=== PATIENT | male | born 1975 | race Caucasian/White ===

== ENCOUNTER 2016-10-14 06:36 | Day surgery (SDC) | payer OTHER, BC ==
[2016-10-09 10:18] LABS: BASOPHILS 0.2 %; BASOPHILS ABSOLUTE 0.02 10/3/uL (0.0-0.16); EOSINOPHILS 1.7 %; EOSINOPHILS ABSOLUTE 0.15 10/3/uL (0.0-0.53); HEMATOCRIT 41.6 % (40.0-51.0); HEMOGLOBIN 14.1 g/dL (13.6-17.8); IMMATURE GRANULOCYTES 0.7 %; IMMATURE GRANULOCYTES ABSOLUTE 0.06 10/3/uL (0.0-0.11); LYMPHOCYTES 23.5 %; LYMPHOCYTES ABSOLUTE 2.09 10/3/uL (0.67-4.30); MANUAL DIFF NO %; MEAN CORPUS HGB CONC 33.9 g/dL (32.0-36.0); MEAN CORPUSCULAR HEMOGLOB 30.4 pg (26.0-34.0); MEAN CORPUSCULAR VOLUME 89.7 fL (80-100); MEAN PLATELET VOLUME 9.7 fL (9.2-13.0); MONOCYTES 7.8 %; MONOCYTES ABSOLUTE 0.69 10/3/uL (0.21-1.20); NEUTROPHILS 66.1 %; NEUTROPHILS ABSOLUTE 5.87 10/3/uL (2.02-8.40); PLATELET COUNT 331 10/3/uL (150-400); RBC DISTRIBUTION WIDTH 13.8 % (12.0-16.0); RED CELL COUNT 4.64 10/6/uL (4.7-6.1); WHITE BLOOD CELLS 8.9 10/3/uL (4.5-10.5)
[2016-10-09 10:41] LABS: A/G RATIO 1.2 (0.7-1.9); ALBUMIN 3.8 G/DL (3.5-5.0); ALKALINE PHOSPHATASE 101 U/L (45-117); BUN (BLOOD UREA NITROGEN) 14 MG/DL (6-23); CALCIUM, SERUM 8.6 MG/DL (8.5-10.4); CHLORIDE, SERUM 108 MMOL/L (96-112); CO2 (CARBON DIOXIDE) 29 MMOL/L (24-34); CREATININE 1.06 MG/DL (0.70-1.30); GFR AFRICAN AMERICAN 100 ML/MIN (>=60); GFR NON AFRICAN AMERICAN 86 ML/MIN (>=60); GLOBULIN 3.2 G/DL (2.5-4.1); GLUCOSE, SERUM 92 MG/DL (60-99); POTASSIUM, SERUM 4.6 MMOL/L (3.5-5.3); SGOT(AST) 24 U/L (5-40); SGPT(ALT) 50 U/L (5-65); SODIUM, SERUM 143 MMOL/L (135-148); TOTAL BILIRUBIN 0.3 MG/DL (0-1.2)
--- NOTE | ~2016-10-14 | OP ---
Record Of Operation [facility] [address] [place]. [address] NAME: KAYLA IBARRA : 73 STATUS : REG [facility] [place] PAT#: [id number] AGE: 41 ADM/REG DATE : 10/14/16 MR#: [id number] REPORT SERV DATE: 10/14/16 DICTATED BY: MISHA SYKES III DATE: 10/14/16 REPORT STATUS : Draft TRANSCRIBED BY: MODL DATE: 10/14/16 DATE OF PROCEDURE: 10/14/2016 PREOPERATIVE DIAGNOSIS: Symptomatic acalculous cholecystitis. POSTOPERATIVE DIAGNOSIS: Symptomatic acalculous cholecystitis. PROCEDURE: Laparoscopic cholecystectomy. SURGEON: Misha Sykes M.D. ANESTHESIA: General with intubation. COMPLICATIONS: None. ESTIMATED BLOOD LOSS: Less than 30 mL. SPECIMENS: Gallbladder. DRAINS: None. LAP AND SPONGE COUNT: Correct x3. BRIEF HISTORY: This patient presented with evidence for acalculous cholecystitis. It was felt that laparoscopic cholecystectomy, possible laparotomy was indicated. This procedure, the risks, benefits, and alternatives, including but not limited to the risk for bleeding, infection, enterotomy, injury to any abdominal structure, common bile duct injury, bile leak, retained common bile duct stone, possible need for laparotomy, postop diarrhea, and unforeseen complications including deep venous thrombosis, pulmonary embolus, myocardial infarction, stroke, pneumonia, and , were fully and completely explained to patient length prior to surgery. The fact that this was a major operation with risk for major morbidity and mortality, no guarantee for relief his symptoms were explained. The expected length of recovery with open laparoscopic procedures was explained. The patient had questions, which were answered. He fully understood the risks and agreed to surgery as planned. FINDINGS: The patient's gallbladder galloway were thickened, inflamed, and there were adhesions between the gallbladder and omentum consistent with cholecystitis. The liver and remainder upper abdomen and lower abdomen were otherwise unremarkable as far as we could determine through the laparoscope. PROCEDURE IN DETAIL: After being appropriately identified and after discussing the risks of surgery with the patient and his family in the preoperative area, the patient was taken to the operating room and placed in the supine position on the operating room table. General anesthesia was administered. He was intubated without difficulty. The abdomen was prepped and draped sterilely in the usual fashion. After an appropriate "time-out" per [facility] Record Of Operation [facility] [address] [place]. [address] NAME: KAYLA IBARRA : 73 STATUS : REG [facility] [place] PAT#: [id number] AGE: 41 ADM/REG DATE : 10/14/16 MR#: [id number] REPORT SERV DATE: 10/14/16 DICTATED BY: MISHA SYKES III DATE: 10/14/16 REPORT STATUS : Draft TRANSCRIBED BY: MODGisel DATE: 10/14/16 standards, a small transverse incision was made below the umbilicus. The skin and fascia on either side was elevated with towel clips. A Veress needle was placed through the incision into the peritoneal cavity. Correct position of the needle in the peritoneal cavity was confirmed by the hanging drop test. The abdominal cavity was then insufflated to about 13 mmHg with carbon dioxide. Correct position of air in the peritoneal cavity was confirmed by palpation. The Veress needle was removed and replaced with 10-mm trocar. The laparoscope was placed through this. The patient was placed in the reverse Trendelenburg position and to his left. A second 10-mm trocar was placed just below the xiphoid process, to the right of the falciform ligament, under direct vision with the laparoscope. Two 5-mm trocars were placed along the right subcostal margin, one in the midaxillary line, the other in the midclavicular line. These were also placed under direct vision with the laparoscope. The upper abdomen was inspected. The gallbladder appeared to be chronically diseased. The gallbladder glaloway were thickened and inflamed consistent chronic cholecystitis. The liver and remainder of the upper abdomen were otherwise unremarkable as far as we could determine through the laparoscope. The appropriate instruments were placed through the trocars. The gallbladder was grasped and the infundibulum of the gallbladder was retracted laterally and inferiorly so as to expose the triangle of Calot. Using careful sharp and blunt dissection, the cystic duct was carefully and meticulously defined proximally and distally. The cystic duct was fairly long. The junction of the cystic duct with the common bile duct was appreciated, but not skeletonized. The cystic artery was similarly defined proximally and distally. The fibrous and fatty tissue between these structures was divided so as to clearly identify the critical angle. Once these structures were clearly defined, the cystic duct was clipped using two clips on the common bile duct side and one on the gallbladder side, all placed as close to the gallbladder as possible, taking care not encroach upon or injure the common bile duct in any way. The cystic duct was then divided between these clips as close to the gallbladder as possible. We elected not to perform a cholangiogram because there was no preoperative or intraoperative evidence for biliary dilatation and because the patient's preoperative liver enzymes were normal and because his biliary anatomy was clearly defined. Again, the structure was not divided or clipped until the critical angle and triangle of Calot had been clearly identified. The cystic artery was then similarly clipped and divided as close to the gallbladder as possible. Using the spatula and the cautery, the gallbladder was carefully dissected from the liver bed. This went very well. Before the gallbladder was completely removed, the gallbladder bed and portal areas were irrigated numerous times with saline. The saline was aspirated dry. This process was repeated several times until hemostasis was meticulously and thoroughly assured in all areas. It was also assured that the clips in the portal areas were in good position and there was no extravasation of bile from any accessory bile duct. Once this was assured, the gallbladder was completely dissected away from the liver and placed in the Endopouch. The liver bed was elevated, irrigated, and inspected for meticulous and thorough hemostasis and for absence of any biliary extravasation and to be certain that the clips were in good position. Once this was assured, the gallbladder and Endopouch were brought out through the infraumbilical incision and placed in the laparoscope through the subxiphoid port. The fascia of the infraumbilical incision was closed with 0 Vicryl suture. The lateral two trocars were removed. These two lower trocar sites were inspected on the underside for hemostasis with the laparoscope. Once this was assured, the subxiphoid trocar was removed under direct vision with the laparoscope to assure hemostasis in this incision. The air was removed from the peritoneal cavity through this incision. The skin incisions were inspected Record Of Operation [facility] [id number] [facility] [place]. [address] NAME: KAYLA IBARRA : 73 STATUS : REG [facility] [place] PAT#: [id number] AGE: 41 ADM/REG DATE : 10/14/16 MR#: [id number] REPORT SERV DATE: 10/14/16 DICTATED BY: MISHA SYKES III DATE: 10/14/16 REPORT STATUS : Draft TRANSCRIBED BY: STANISLAV DATE: 10/14/16 for hemostasis, they were closed with running subcuticular 4-0 Monocryl stitches. They were injected with one-half percent Marcaine. Dressings were applied. Anesthesia was reversed and the patient was taken to the recovery room in stable condition. The patient tolerated the procedure well. His family was informed of the results of surgery. The patient was discharged later when he was stable, comfortable and tolerating liquids and able to void and ambulate. His family was advised that he should remain on a liquid diet today and advance this as tolerated to a regular diet tomorrow. He should keep wounds clean and dry for 48 hours and that he should not drive for 3-4 days after surgery or while using narcotics or Phenergan. They were advised that he should resume his usual medications. He was given a prescription for a narcotic and Phenergan, which he was advised to not take while driving. ANSHUL/STANISLAV Misha Sykes III, M.D. / [id number] CC: Vern Cee III, SUSAN R.
--- NOTE | ~2016-10-14 | PREOPHP ---
PreOp History and Physical [facility] [address] [place]. [address] NAME: KAYLA IBARRA : 73 STATUS : PRE [facility] [place] PAT#: [id number] AGE: 41 ADM/REG DATE : MR#: [id number] REPORT SERV DATE: 10/14/16 DICTATED BY: MISHA SYKES III DATE: 10/01/16 REPORT STATUS : Draft TRANSCRIBED BY: MODGisel DATE: 10/01/16 HISTORY OF PRESENT ILLNESS: This 41-year-old male comes to the operating room for laparoscopic cholecystectomy, possible laparotomy, for symptomatic acalculous cholecystitis. The patient complains of a several month history of nausea. This has been associated with intermittent episodes of upper abdominal pain and vomiting. The pain sometimes migrates to the chest and to the back. The patient occasionally has diarrhea with the pain. The patient has had an exhaustive workup which has been essentially normal. He comes now for laparoscopic cholecystectomy, possible laparotomy, with presumed diagnosis of acalculous cholecystitis based on his history. It has been fully and completely explained to the patient and his family at length that because his radiographic workup is normal and his GI workup is normal, his symptoms may not in any way be relieved or improved by surgery. The patient clearly understands this possibility and these risks and wishes to proceed with the surgery as planned. The patient states that the pain is sometimes in the left upper quadrant. Sometimes it migrates through to the left back and sometimes it is in the epigastric area. He describes the pain as 10/10 when it occurs. The patient has had a colonoscopy and upper endoscopy which have been normal. He did have a history of H. pylori gastritis for which he was taking appropriate medications. MEDICATIONS: Metoprolol; omeprazole; Zofran; Prilosec; dicyclomine; Zoloft; Zantac; Toradol; loperamide; methylprednisone; promethazine, , tizanidine. PAST MEDICAL HISTORY: Includes hypertension, gastroesophageal reflux disease, and anxiety. ALLERGIES: SULFA. PAST SURGICAL HISTORY: Status post knee surgery. FAMILY HISTORY: Positive for stroke and heart disease. SOCIAL HISTORY: The patient has a history of tobacco abuse. He has no history of alcohol use. REVIEW OF SYSTEMS: The patient complains of vomiting and back pain. His 14-point review of systems is otherwise unremarkable. PHYSICAL EXAMINATION: OBJECTIVE PHYSICAL EXAM: GENERAL: This is an obese male, in no acute distress. He is alert and oriented x3. VITAL SIGNS: Blood pressure 135/89, pulse 108, and temperature 97.2. HEENT: Unremarkable. NEUROLOGIC: Cranial nerves 2 through 12 are normal. LUNGS: Clear. PreOp History and Physical [address] [address] NAME: KAYLA IBARRA : 73 STATUS : PRE [facility] [place] PAT#: [id number] AGE: 41 ADM/REG DATE : MR#: [id number] REPORT SERV DATE: 10/14/16 DICTATED BY: MISHA SYKES III DATE: 10/01/16 REPORT STATUS : Draft TRANSCRIBED BY: STANISLAV DATE: 10/01/16 CARDIAC: Normal. ABDOMEN: Soft. Nontender. No masses. EXTREMITIES: Normal with no edema. LABORATORY DATA: HIDA scan, gallbladder ultrasound, CT scan, upper and lower endoscopy, mesenteric vascular studies, and gastric emptying studies are all normal. ASSESSMENT: A 41-year-old male with: 1. Presumed acalculous cholecystitis. 2. Obesity. 3. Anxiety. 4. Hypertension. 5. Gastroesophageal reflux disease. PLAN: The patient comes to the operating room now for laparoscopic cholecystectomy, possible laparotomy. This procedure, the risks, benefits, and alternatives, including not limited to the risk for bleeding, infection, common bile duct injury, bile leak, retained common bile duct stone, enterotomy, injury to any abdominal structure, the definite possible need for laparotomy, possible persistence of his symptoms unrelieved by surgery, positive postoperative diarrhea or incisional hernia, and unforeseen complications including deep venous thrombosis, pulmonary embolus, myocardial infarction, stroke, pneumonia, and , have been fully and completely explained to the patient and his family at length prior to surgery. The fact that this is a major operation with risk for major morbidity and mortality and no guarantee for relief of his symptoms were explained to them. The expected length of recovery of both open and laparoscopic procedures has been explained. In particular, the fact that his symptoms may not be relieved by surgery due to his normal radiographic and GI workup has been explained. The option of nonoperative management has been offered to the patient but declined. The patient clearly understands the risks and agrees to the surgery as planned. RHJ/MODL Misha Sykes III, M.D. / [id number]
[~2016-10-14 06:36] MED LIST: BENTYL20 PO; D 5000 PO; LOP25 PO; PRILOSEC40 MG PO; RANITIDINE300 MG PO; X5 PO; ZOFRANODT8 PO; ZOL100 PO
[2016-10-14 13:25] LABS: HEMATOCRIT 40.8 % (40.0-51.0); HEMOGLOBIN 13.9 g/dL (13.6-17.8)
== END 2016-10-14 16:07 | disposition home or self-care (01) ==
LOC: SDC 06:36
PROVIDERS: Surgery
PROC: 0FT44ZZ Resection of Gallbladder, Percutaneous Endoscopic Approach (ICD-10-PCS; principal; 2016-10-14 08:00)
DX: K81.1 Chronic cholecystitis (principal); K82.8 Other specified diseases of gallbladder; K21.9 Gastro-esophageal reflux disease without esophagitis; I10 Essential (primary) hypertension; F41.9 Anxiety disorder, unspecified; F32.9 Major depressive disorder, single episode, unspecified; F17.220 Nicotine dependence, chewing tobacco, uncomplicated; E66.9 Obesity, unspecified; Z68.32 Body mass index [BMI] 32.0-32.9, adult; Z98.890 Other specified postprocedural states; Z82.3 Family history of stroke; Z82.49 Family history of ischemic heart disease and other diseases of the circulatory system; Z88.2 Allergy status to sulfonamides; Z79.899 Other long term (current) drug therapy
CPT/HCPCS: 71020; 80053; 85014; 85018; 85025; 88304; 93005; A9270-GY; J0330; J0690; J1885; J2250; J2405; J2710; J3010